=== PATIENT | male | born 1945 | race Caucasian/White ===

== ENCOUNTER → 2018-11-05 11:25 | Outpatient (CLI) | payer MEDICARE, SELFPAY ==
--- NOTE | 2018-11-05 11:33 | CI_ITS ---
Cerebrovascular Exam Indications: Follow-up carotid 433.10. IMPRESSIONS 1. The bilateral vertebral arteries are patent with normal antegrade flow. 2. Study suggests 70-99%(upper limit)stenosis involving the left internal carotid artery. 3. Study gssotebw96-89% stenosis with trickle flow involving the right internal carotid artery. History: Coronary artery disease. Risk factors: Hypertension. Carotid duplex study. Complete study and Doppler flow study including spectral analysis, color and polo scale imaging. Height: Height: 180.3cm. Height: 71in. Weight: Weight: 91.2kg. Weight: 200.6lb. Body mass index: BMI: 28kg/m^2. Body surface area: BSA: 2.15m^2. Location: Vascular laboratory. Patient status: Outpatient. CRITICAL FINDINGS - Reported to: Milad Garcia - Read back and verified. - 11/05/2018 - 12:15 pm - 90_99% stenosis reinaldo ICA's - Pt was sent to Cardiology clinic. Tables: Arterial flow: + +--------+--------+ Location V sys V ed + +--------+--------+ Right CCA - proximal 55.8cm/s 11.8cm/s + +--------+--------+ Right CCA - distal 45.6cm/s 11cm/s + +--------+--------+ Right ECA 304cm/s -------- + +--------+--------+ Right ICA - proximal 46.3cm/s 9.6cm/s + +--------+--------+ Right ICA - mid 35.8cm/s 3.5cm/s + +--------+--------+ Right vertebral 39.1cm/s 18.2cm/s + +--------+--------+ Left CCA - proximal 95.7cm/s 28.6cm/s + +--------+--------+ Left CCA - distal 101cm/s 28.6cm/s + +--------+--------+ Left ECA 105cm/s 13.8cm/s + +--------+--------+ Left ICA - proximal 530cm/s 152cm/s + +--------+--------+ Left ICA - mid 322cm/s 114cm/s + +--------+--------+ Left ICA - distal 447cm/s 132cm/s + +--------+--------+ Left vertebral 59.5cm/s 17.7cm/s + +--------+--------+ Velocity ratios: + + + + + + Right, V sys Right, V ed Left, V sys Left, V ed + + + + + + Max ICA/dist CCA 1.02 0.87 5.25 5.31 + + + + + + (Report amended ) Electronically signed by: Junaid Roche [id number]
--- NOTE | 2018-11-05 12:30 | XR_ITS ---
XR chest 2V HISTORY: ITS.REASON: dyspnea ORDERING PHYSICIAN: Brien Garcia MD PATIENT AGE: 73 years COMPARISON: 08/02/2014 FINDINGS: There has been an interval CABG. There is normal heart size. Lungs are clear. No acute bony findings. IMPRESSION: Interval CABG with no acute finding
[2018-11-05 12:38] LABS: Basophils # 0.1 K/mm3 (0-0.2); Basophils % 0.6 % (0.1-2.0); Eosinophils # 0.1 K/mm3 (0.0-0.4); Eosinophils % 1.7 % (0.1-12.0); Hematocrit 48.6 % (42.0-52.0); Hemoglobin 15.8 g/dL (14.1-18.0); Lymphocytes # 1.8 K/mm3 (0.7-4.5); Mean Corpuscular HGB Conc 32.5 g/dL (31.8-35.4); Mean Corpuscular Hemoglobin 29.7 pg (27.0-31.2); Mean Corpuscular Volume 91.2 fl (80-94); Mean Platelet Volume 7.3 fl (7.4-10.4); Monocytes # 0.5 K/mm3 (0.1-1.0); Monocytes % 6.6 % (1.7-9.3); Neutrophils # 5.4 K/mm3 (1.8-7.8); Neutrophils % 68.1 % (37.0-80.0); Platelet Count 296 K/mm3 (142-424); Red Blood Count 5.33 M/mm3 (4.60-6.20); Red Cell Distribution Width 12.9 % (11.5-17.5); White Blood Count 7.9 K/mm3 (4.8-10.8)
[2018-11-05 13:00] LABS: Alanine Aminotransferase 29 U/L (12-78); Albumin Level 3.7 gm/dL (3.4-5.0); Alkaline Phosphatase 106 U/L (46-116); Anion Gap 11.2 mEq/L (5-15); Aspartate Amino Transferase 15 U/L (15-37); Bilirubin,Direct 0.1 mg/dL (0.0-0.2); Bilirubin,Indirect 0.4 mg/dL (0.0-0.9); Bilirubin,Total 0.5 mg/dL (0.2-1.0); Blood Urea Nitrogen 13 mg/dL (7-18); Calcium 8.8 mg/dL (8.5-10.1); Carbon Dioxide 28 mmol/L (21.0-32.0); Chloride 105 mmol/L (98-107); Chol/HDL Ratio 6.2 (1-3.5); Cholesterol 206 mg/dL (140-200); Creatinine,Serum 1.08 mg/dL (0.70-1.30); Estimated Glomerular Filt Rate 67 ml/min (>60); Free T4 (Free Thyroxine) 1.03 ng/dl (0.76-1.46); GFR (African American) 81 ML/MIN (>60); Glucose 92 mg/dL (74-106); HDL Cholesterol 33 mg/dL (27-67); LDL Cholesterol 137 mg/dL (0-130); Potassium 4.2 mmoL/L (3.5-5.1); Sodium 140 mmol/L (136-145); Thyroid Stimulating Hormone 3.31 uIU/ml (0.358-3.740); Total Protein,Serum 7.8 gm/dL (6.4-8.2); Triglycerides 181 mg/dL (30-200); VLDL Cholesterol 36 mg/dL (0-40)
== END ==
PROVIDERS: Visit Provider Internal Medicine
DX: I10 Essential (primary) hypertension (principal); I25.10 Atherosclerotic heart disease of native coronary artery without angina pectoris; K21.9 Gastro-esophageal reflux disease without esophagitis; Z86.73 Personal history of transient ischemic attack (TIA), and cerebral infarction without residual deficits; Z95.1 Presence of aortocoronary bypass graft; Z95.5 Presence of coronary angioplasty implant and graft
CPT/HCPCS: 36415; 71046; 80048; 80061; 80076; 84439; 84443; 85025; 93880

== ENCOUNTER → 2018-11-12 10:03 | Outpatient (CLI) | payer MEDICARE, SELFPAY | PROVIDERS: Visit Provider Internal Medicine | DX: I10 Essential (primary) hypertension (principal); I25.10 Atherosclerotic heart disease of native coronary artery without angina pectoris; K21.9 Gastro-esophageal reflux disease without esophagitis; Z86.73 Personal history of transient ischemic attack (TIA), and cerebral infarction without residual deficits; Z95.1 Presence of aortocoronary bypass graft; Z95.5 Presence of coronary angioplasty implant and graft | CPT/HCPCS: 93306 ==

== ENCOUNTER → 2018-11-18 08:31 | Outpatient (CLI) | payer MEDICARE, SELFPAY ==
--- NOTE | 2018-11-18 08:36 | NM_ITS ---
CARDIOLITE SPECT MYOCARDIAL PERFUSION SCAN, REST AND STRESS: EXERCISE STRESS [facility] REVIEW QGS EF AND WALL MOTION EVALUATION: QPS - PERFUSION EVALUATION HISTORY: SOB, HTN, CAD, CABG DOSE: 9.68 mCi technetium 99m mibi intravenously at rest followed by 32.2 mCi technetium 99m mibi following the intravenous ministration of 0.4 mg of Lexiscan. Resting blood pressure is 197/90. Stress blood pressure 205/103. FINDINGS: Ejection fraction is calculated to be 51%. Stress images reveal severely decreased activity in the inferior apical wall with no change during rest images. 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
--- NOTE | 2018-11-18 09:16 | HMH.ITSHM ---
Current Home Medications as stated by this patient Dewey Leary or benefits representative. []AMLODIPINE ASA ATORVASTATIN
== END ==
PROVIDERS: PCP Nurse Practitioner Family; Visit Provider Internal Medicine
DX: I10 Essential (primary) hypertension (principal); I25.10 Atherosclerotic heart disease of native coronary artery without angina pectoris; K21.9 Gastro-esophageal reflux disease without esophagitis; Z86.73 Personal history of transient ischemic attack (TIA), and cerebral infarction without residual deficits; Z95.1 Presence of aortocoronary bypass graft; Z95.5 Presence of coronary angioplasty implant and graft
CPT/HCPCS: 78452; 93017; A9502; J2785

== ENCOUNTER 2021-08-11 17:44 | Emergency (ER) | payer MEDICARE, SELFPAY ==
[2021-08-11 17:44] VITALS: BP 141/72; PULSE 78; RESP 15; TEMP 37.1; O2SAT 97; BMI 19.1
[2021-08-11 18:30] VITALS: BP 148/73; PULSE 69; RESP 16; O2SAT 96
--- NOTE | 2021-08-11 19:26 | HMH.EDGENADL ---
ED Disposition Clinical Impression: Cervicalgia Disposition: Home, Self-Care Condition on Discharge: Good Instructions: DI for Neck Pain Additional Instructions: Call your primary care provider on Saturday to arrange follow-up for your neck pain and for enlargement of the aorta seen on CT scan. Tylenol 3 as needed for pain. Heating pad or warm compresses to your neck may help as well. Additional instructions for NECK PAIN: See your physician as soon as possible for further evaluation. Return immediately if neck pain becomes intolerable, or if fever, numbness or weakness of your arms or legs, loss of control of your bowels or bladder. Additional instructions for CONTROLLED SUBSTANCES: You have been prescribed a medication that is a controlled substance. Controlled substances include pain medications known as opiates and sedative nerve medications known as benzodiazepines. Tramadol, fioricet, and gabapentin are also controlled substances. Some common opiates include: Codeine (such as Tylenol #3) Hydrocodone (Vicodin, Lortab, Lorcet, Ellsworth) Oxycodone (Percocet, Percodan, Oxycodone, Oxy IR) Some common benzodiazepines include: Diazepam (Valium) Lorazepam (Ativan) Alprazolam (Xanax) Clonazepam (Klonopin) Oxazepam (Serax) All of these controlled substances are highly addictive and frequently abused. Misuse can and frequently does lead to addiction as well as overdose and . Medication should be stored in a locked cabinet or other secure storage unit. Do not store the medication in a motor vehicle. Short term supplies, 3 days or less, are prescribed because of the highly addictive nature of the medication. Any of the controlled substance medication NOT taken should be disposed of properly and NOT SAVED. The recommended method of disposing of unused medications is: Place the medicines in a sealable plastic bag. If the medicine is a solid, crush it or add water to dissolve it. Add something undesirable (cat litter, coffee grounds, etc.) Dispose of sealed bag in household trash Do not flush or pour unused medicines down a sink or drain. Controlled substances should not be shared, given away or sold. Because of the addictive nature and frequent abuse, these medications are sometimes stolen. These medications should be kept in a safe place where they cannot be stolen. Do not keep them in your car or purse. Lost or stolen prescriptions for controlled substances WILL NOT BE REFILLED in this emergency department, regardless of whether a police report was filed. Prescriptions: Acetaminophen with Codeine [Tylenol with Codeine #3 tablet] 1 tab PO Q6HP PRN #12 tab PRN Reason: Moderate Pain Transmission Status: Received by [facility] #[id number] Referrals: Samra Fabian [Primary Care Provider] - - Critical Care Critical Care Time: No Attestation: On 08/11/21, the high probability of a clinically significant, sudden or life threatening deterioration of the following system(s) required my full and direct attention, intervention and personal management. The time I documented below is in addition to time spent performing reported procedures but includes the following listed in this critical care notation. Medical Decision Making - Cosme Inquiry Pt receiving controlled substance: Yes Cosme was queried for this patient: Yes Risks and benefits of using a controlled substance: were discussed with pt by me Vital Signs: 08/11/21 17:44 08/11/21 18:30 Temperature 98.7 F Temperature Source Oral Pulse Rate 69 Pulse Rate [Radial] 78 Respiratory Rate 15 16 Blood Pressure 148/73 H Blood Pressure [Right Arm] 141/72 H Blood Pressure Mean 115 Blood Pressure Mean [Right Arm] 95 Blood Pressure Position [Right Arm] Sitting 02 Sat by Pulse Oximetry 97 96 Oxygen Delivery Method Room Air - CT Data CT Scan: C-Spine Time Received: 20:[address] Reviewed: Yes: I have viewed the radiologis
--- NOTE | 2021-08-11 19:39 | CT_ITS ---
PROCEDURE INFORMATION: Exam: CT Cervical Spine Without Contrast Exam date and time: 08/11/2021 7:39 PM Age: 76 years old Clinical indication: Neck pain; Prior surgery; Surgery date: 6+ months; Surgery type: Left carotid artery surgery 2 yr ago; Additional info: Neck pain stiff neck no injury TECHNIQUE: Imaging protocol: Computed tomography images of the cervical spine without contrast. Radiation optimization: All CT scans at this facility use at least one of these dose optimization techniques: automated exposure control; mA and/or kV adjustment per patient size (includes targeted exams where dose is matched to clinical indication); or iterative reconstruction. COMPARISON: US CA carotid duplex BI 11/05/2018 11:51 AM FINDINGS: Bones/joints: No evidence of fracture. Mild reversal normal cervical lordosis. No malalignment. Discs/Spinal canal/Neural foramina: Mild multilevel degenerative facet arthropathy and uncovertebral spurring is seen. Findings are worst at C5-C6 and C6-C7 where there is gphy-wq-yutnfksa bilateral bony neural foraminal stenosis. There is also [id number]-yzynrqsi bilateral bony neural foraminal stenosis at C3-C4 worse on the left. No significant central canal stenosis. Lungs: Lung apices are normal. Vasculature: Partially imaged ascending aorta measures up to 40 mm. Soft tissues: Postsurgical changes seen in the left neck soft tissues. Mediastinum: Postsurgical changes seen in the mediastinum. IMPRESSION: 1. Wije-io-xuztplks multilevel degenerative spondylopathy with multilevel neural foraminal stenoses. 2. Partially imaged ascending aortic aneurysmal dilatation up to 40 mm.
[2021-08-11 21:03] VITALS: BP 172/85; PULSE 72; RESP 18; TEMP 36.7; O2SAT 96
== END 2021-08-11 21:05 | disposition home or self-care (01) ==
PROVIDERS: Emergency Provider Emergency Medicine; PCP Nurse Practitioner Family
DX: M54.2 Cervicalgia (principal); I25.10 Atherosclerotic heart disease of native coronary artery without angina pectoris; K21.9 Gastro-esophageal reflux disease without esophagitis; I10 Essential (primary) hypertension; X50.9XXA Other and unspecified overexertion or strenuous movements or postures, initial encounter; Y92.019 Unspecified place in single-family (private) house as the place of occurrence of the external cause
CPT/HCPCS: 72125; 99282

== ENCOUNTER → 2022-10-10 10:47 | Outpatient (CLI) | payer MEDICARE, SELFPAY ==
[2022-10-10 11:48] LABS: Blood Urea Nitrogen 17 mg/dl (9-20); Estimated Glomerular Filt Rate 65 ml/min (>60); GFR (African American) 78 ML/MIN (>60)
== END ==
PROVIDERS: PCP Nurse Practitioner Family; Visit Provider Thoracic Surgery (Cardiothoracic Vascular Surgery)
DX: I71.21 Aneurysm of the ascending aorta, without rupture (principal)
CPT/HCPCS: 36415; 82565; 84520

== ENCOUNTER 2024-11-11 08:11 | Outpatient (CLI) | payer MEDICARE, SELFPAY ==
--- NOTE | 2024-11-11 08:22 | CT_ITS ---
FINAL REPORT TECHNIQUE: Axial imaging of the chest is obtained after the administration of contrast. 3-D MIP reformatted images were also obtained and reviewed per PE protocol. This study was performed with techniques to keep radiation doses as low as reasonably achievable (ALARA). Individualized dose reduction techniques using automated exposure control or adjustment of mA and/or kV according to the patient's size were employed. CLINICAL HISTORY: CHEST/THORACIC AORTIC ANEURYSM COMPARISON: None FINDINGS: The pulmonary arteries are well filled. There is no evidence of pulmonary embolus. There is no aortic dissection. Heart size is normal. The ascending aorta measures 4 cm in diameter. There is no mediastinal, hilar, or axillary lymphadenopathy. The lungs are clear. There is no pleural or pericardial effusion. There is evidence of prior granulomatous disease. Limited evaluation of the upper abdomen demonstrates small gallstones present in the gallbladder without evidence of biliary ductal dilatation. There is a nonobstructing left renal stone. No acute osseous abnormality. IMPRESSION: No evidence of pulmonary embolism or aortic dissection. 4 cm ascending aortic aneurysm. Small gallstones in the gallbladder, without evidence of biliary ductal dilatation. There is also a nonobstructing left renal stone. Reviewed, Interpreted and Dictated by Paloma Elise MD Transcribed by Gena Rose Authenticated and [facility]
[2024-11-11 08:37] LABS: Blood Urea Nitrogen 19 mg/dl (9-20); Estimated Glomerular Filt Rate 58 ml/min (>60); GFR (African American) 70 ML/MIN (>60)
[2024-11-11] MEDS: SODIUM CHLORIDE 0.9% 10ML SYR (RAD ONLY) 10 ML IV (09:26)
[2024-11-11] MEDS: 0.9 % SODIUM CHLORIDE 50 ML VIAL 40 ML IV (09:26)
[2024-11-11] MEDS: IOPAMIDOL-370 (76%);100ML BOTTLE 100 ML IV (09:26)
== END 2024-11-11 23:59 | disposition home or self-care (01) ==
LOC: RAD 08:12
PROVIDERS: PCP Nurse Practitioner Family; Visit Provider Nurse Practitioner Family
DX: I71.20 Thoracic aortic aneurysm, without rupture, unspecified (principal)
CPT/HCPCS: 36415; 71275; 82565; 84520; Q9967